=== PATIENT | female | born 1995 | race Caucasian/White ===

== ENCOUNTER 2021-07-30 13:47 | Emergency (ER) | payer OTHER ==
[~2021-07-30] VITALS: Ht 157.5 cm; Wt 55.8 kg
[2021-07-30] MEDS ORDERED: IV NORMAL SALINE 1000 ML BAG IV ONE (14:00)
[2021-07-30 14:12] LABS: *BILIRUBIN,URIN NEGATIVE (NEGATIVE); *BLOOD, URINE 2+ (NEGATIVE); *CLARITY,URINE CLEAR (CLEAR); *COLOR,URINE YELLOW (YELLOW); *KETONES,URINE TRACE (NEGATIVE); *UROBILINOGEN,URINE 0.2 E.U./dl (NORMAL); LEUKOCYTE ESTERASE ,URINE 1+ (NEGATIVE); NITRITE, URINE NEGATIVE (NEGATIVE); UGLUCOSE NEGATIVE (NEGATIVE)
[2021-07-30] MEDS ORDERED: MORPHINE SULFATE 4 MG/1 ML DISP.SYRIN IV ONE (14:15)
--- NOTE | 2021-07-30 14:20 | NUR ---
Called Dr.Shelley Felix ([phone]), there was no answer or answering service.
--- NOTE | 2021-07-30 14:21 | NUR ---
Female licensed tax consultant accompanied female patient for (Dr Mccarty).
[2021-07-30 14:23] LABS: HEMATOCRIT 40.1 % (31.2-41.9); MEAN CORPUSCULAR HEMOGLOBIN 30.3 uug (24.7-32.8); MEAN CORPUSCULAR VOLUME 89.8 fL (75.5-95.3); PLATELET COUNT (AUTO) 253 K/uL (179-408)
--- NOTE | 2021-07-30 14:25 | NUR ---
Called ([phone] cell), she spoke with the ER physician.
[2021-07-30] MEDS ORDERED: IOHEXOL 300MG/ML 100 ML INFUS..BTL ONE (14:27)
[2021-07-30] MEDS ORDERED: IV NORMAL SALINE 250 ML IV ONE (14:27)
[2021-07-30] MEDS ORDERED: SWABABLE VALVE TRANSFER SET EA MC ONE (14:27)
[2021-07-30 14:30] LABS: BACTERIA,URINE FEW /HPF (NONE SEEN)
[2021-07-30 14:30] LABS: BILIRUBIN,TOTAL 0.5 mg/dL (0.2-1.0); CREATININE 0.7 mg/dL (0.6-1.3); POTASSIUM 3.7 mmol/L (3.5-5.1); TOTAL PROTEIN, SERUM 8.2 g/dL (6.4-8.2)
[2021-07-30] MEDS ORDERED: CEFTRIAXONE 1 G in IV DEXTROSE 5% 50 ML IV ONE (14:30)
[2021-07-30 14:31] LABS: SQUAMOUS EPITHELIAL CELL,UR MODERATE /HPF (NONE SEEN)
[2021-07-30] MEDS ORDERED: MORPHINE SULFATE 4 MG/1 ML DISP.SYRIN ONE (14:37)
[2021-07-30 14:39] LABS: *URINE HCG, QUAL NEG (NEGATIVE)
[2021-07-30] MEDS ORDERED: CEFTRIAXONE /D5W 50ML IVPB **ER PYXIS IV ONE (14:47)
--- NOTE | 2021-07-30 15:00 | NUR ---
Pt taken down for CT scan via gurney by tech. Pt in stable condition at time of transport. Pt states improvement in pain at time of transport.
[2021-07-30] MEDS ORDERED: METR500T PO (15:55)
[2021-07-30] MEDS ORDERED: DOXY-326 PO (15:55)
[2021-07-30] MEDS ORDERED: KETOROLAC TROMETHAMINE 15 MG INJ IVP ONE (16:00)
--- NOTE | 2021-07-30 16:05 | NUR ---
Saline lock removed, clear and intact. Patient discharged to home in stable condition. Written and verbal after care instructions given. Patient verbalizes understanding of instructions. Stressed follow up or return to ER for worsening s/s.
[2021-07-30] MEDS ORDERED: KETOROLAC TROMETHAMINE 15 MG INJ ONE (16:09)
[2021-07-30 16:28] VITALS: BP 119/84
[2021-08-01 21:06] LABS: *TRIC.VAG. NAA Negative (Negative)
[2021-08-01 22:06] LABS: *GC NAA Negative (Negative)
== END 2021-07-30 16:05 | disposition home or self-care (01) ==
LOC: ER 13:47
DX: R10.31 Right lower quadrant pain (principal); T83.69XA Infection and inflammatory reaction due to other prosthetic device, implant and graft in genital tract, initial encounter; Z79.2 Long term (current) use of antibiotics; Z79.899 Other long term (current) drug therapy
CPT/HCPCS: 36415; 74177; 76856; 80053; 81001; 83690; 84703; 85025; 87086; 87491; 96374; 96375; 99285; J0696; J1885; J2270; Q9967; A4663; J7030; J7050